=== PATIENT | male | born 2000 | race American Indian/Alaskan Native ===

== ENCOUNTER 2020-09-20 19:24 | Emergency (ER) | payer SELFPAY ==
[2020-09-20 19:40] VITALS: BP 128/65
[2020-09-20] MEDS ORDERED: IPRATROPIUM 0.02% NEBU 2.5 ML IH ONE ×3 (19:53→22:15)
[2020-09-20] MEDS ORDERED: ALBUTEROL 2.5 MG/3 ML NEBU IH ONE ×3 (19:53→22:15)
--- NOTE | 2020-09-20 19:57 | Emergency Department Report ---
ED General Adult HPI - General Chief complaint: Dyspnea/Respdistress Stated complaint: ASTHMA Time Seen by Provider: 09/20/20 19:47 Source: patient Mode of arrival: Ambulatory Limitations: No Limitations - History of Present Illness Initial comments: 19-year-old male patient with history of asthma and tobacco use presents to emergency department with complaints of cough, wheezing, and shortness of breath for 2 weeks. Patient used an albuterol inhaler at home with limited relief. Patient states symptoms began after playing basketball at the gym. He has never required hospitalization for his asthma. He did not receive his COVID-19 vaccination series. Denies fever, chills, chest pain, hemoptysis, vomiting, syncope. Denies all other complaints at this time. - Related Data Previous Rx's Medication Instructions Recorded Last Taken Type Albuterol Sulfate [Proair 90 mcg IH Q4H PRN #1 aer.pw.bas 09/20/20 Unknown Rx Digihaler] predniSONE [Deltasone] 20 mg PO QDAY #5 tab 09/20/20 Unknown Rx Allergies Allergy/AdvReac Type Severity Reaction Status Date / Time No Known Allergies Allergy Verified 09/20/20 22:11 ED Review of Systems ROS: Stated complaint: ASTHMA Other details as noted in HPI Other: GENERAL: Negative for fever, chills, weight change, anorexia, fatigue. ENT: Negative for ear pain, difficulty hearing, sore throat, nasal congestion, epistaxis. CARDIOVASCULAR: Negative for chest pain, palpitations, lower extremity swelling. PULMONARY: Positive for cough, wheezing, shortness of breath. GASTROINTESTINAL: Negative for abdominal pain, nausea, vomiting, diarrhea, constipation. MUSCULOSKELETAL: Negative for joint pain, joint swelling, myalgias, back pain, neck pain. NEUROLOGICAL: Negative for headache, seizure, syncope, paresthesias, weakness. INTEGUMENTARY: Negative for erythema, rash, diaphoresis, laceration, ecchymosis. HEMATOLOGICAL: Negative for hemoptysis, hematemesis, hematochezia, hematuria. PSYCHIATRIC: Negative for hallucinations, suicidal ideation, homicidal ideation, anxiety, depression. ED Past Medical Hx - Past Medical History Previous Medical History?: Yes Hx Asthma: Yes Additional medical history: eczema - Surgical History Past Surgical History?: No - Medications Home Medications: Home Medications Medication Instructions Recorded Confirmed Last Taken Type Albuterol Sulfate [Proair 90 mcg IH Q4H PRN #1 aer.pw.bas 09/20/20 Unknown Rx Digihaler] predniSONE [Deltasone] 20 mg PO QDAY #5 tab 09/20/20 Unknown Rx ED Physical Exam - General Limitations: No Limitations - Other Other exam information: General: Awake and alert. Actively coughing throughout history and examination. Head: Atraumatic, normocephalic. Eyes: EOMI. Pupils are equal and round. Normal sclera and conjunctiva. ENT: Oral mucosa is moist. Normal pharyngeal exam. Neck: Supple. No lymphadenopathy. Pulmonary: No respiratory distress. Scattered expiratory wheezing bilaterally. Diminished air movement. Cardiac: Regular rate and rhythm. Pulses are palpable and equal bilaterally. No lower extremity cyanosis or edema. Skin: Warm and dry. No rashes. Abdomen: Soft, non-tender, non-protuberant. No guarding, rigidity, or rebound. Bowel sounds are normal. No organomegaly or masses noted. Back: Normal alignment. No CVA tenderness. Extremities: Symmetrical. Full range of motion intact. Neurological: Alert and oriented, appropriately interactive, no focal deficits. Psych: Cooperative. Appropriate mood and affect. Speech is evenly metered. Thoughts are logically construed. ED Course Vital Signs 09/20/20 09/20/20 19:39 22:24 Temperature 99.2 F Pulse Rate 98 H Pulse Rate [ 72 Bilateral] Respiratory 18 Rate Respiratory 20 Rate [Bilateral ] Blood Pressure 128/65 [Right] O2 Sat by Pulse 95 Oximetry ED Medical Decision Making - Medical Decision Making Differential diagnosis including but not limited to: asthma exacerbation, pneumonia, pleural effusion, viral upper respiratory infection, influenza 19:53: Continuous pulse oximetry and cardiac monitoring ordered immediately following assessment. Respiratory therapy aware of order for breathing treatment. Chest x-ray ordered due to productive cough in the setting of asthma/tobacco use/unvaccinated COVID-19 status. 21:29: Chest x-ray without acute process. Patient still awaiting breathing treatment. 23:59: On reevaluation, patient is stable and symptoms have improved significantly. Repeat cardiopulmonary exam demonstrates clear lungs and good air movement. Patient states he feels ready to go home and is asking how much longer until he can leave. He is ambulatory without assistance, no hypoxia, no respiratory distress. No clinical indication for further diagnostic work-up on an emergent basis at this time. Patient will be discharged home with beta agonist inhaler and short course of oral steroids. Referred to primary care provider for close outpatient follow-up. Emphasized the importance of avoiding environmental triggers which may worsen his symptoms. Smoking cessation discussed. Strict return precautions provided. Repeat exam is unremarkable and benign. History, exam, diagnostic testing, and current condition do not suggest worrisome pathology to warrant further testing, continued ED treatment, admission, or surgical evaluation at this point. Given the low probability of a significant medical illness, it would be more likely to result in harm than benefit to perform further testing at this stage. Discussed findings, presumptive diagnosis, need for follow-up and specific signs/symptoms that should prompt immediate return to the emergency department. Instructions were explained in detail to the patient in addition to giving written discharge information. Patient expressed understanding and was given the opportunity to ask questions, all of which were satisfactorily answered prior to discharge home. Critical care attestation.: If time is entered above; I have spent that time in minutes in the direct care of this critically ill patient, excluding procedure time. ED Disposition Clinical Impression: Asthma exacerbation Qualifiers: Asthma severity: unspecified severity Asthma persistence: unspecified Qualified Code(s): J45.901 - Unspecified asthma with (acute) exacerbation Disposition: 01 HOME / SELF CARE / HOMELESS Is pt being admited?: No Does the pt Need Aspirin: No Condition: Stable Instructions: Asthma Attack Additional Instructions: Use Albuterol inhaler as directed. Take Prednisone with food as directed. Avoid environmental triggers which may worsen your symptoms. Please discontinue tobacco use. Follow-up with primary care provider this week. Call tomorrow to schedule an appointment. Return to the emergency department immediately for new or worsening symptoms. Prescriptions: predniSONE [Deltasone] 20 mg PO QDAY #5 tab Albuterol Sulfate [Proair Digihaler] 90 mcg IH Q4H PRN #1 aer.pw.bas PRN Reason: Shortness Of Breath Referrals: JACOB MENDEZ MD [Staff Physician] - 3-5 Days [facility] [Provider Group] - 3-5 Days Time of Disposition: 23:58
--- NOTE | 2020-09-20 21:01 | XRay Report ---
CHEST 1 VIEW 09/20/2020 7:51 PM INDICATION / CLINICAL INFORMATION: asthma, productive cough, no covid vaccine. Fever. COMPARISON: None available. FINDINGS: SUPPORT DEVICES: None. HEART / MEDIASTINUM: No significant abnormality. LUNGS / PLEURA: No significant pulmonary or pleural abnormality. No pneumothorax. ADDITIONAL FINDINGS: No significant additional findings. IMPRESSION: 1. No acute findings. Signer Name: Ana Cristina Koehler MD Signed: 09/20/2020 8:56 PM Workstation Name: [id number]
== END 2020-09-20 23:59 | disposition home or self-care (01) ==
LOC: ED 19:24
DX: J45.901 Unspecified asthma with (acute) exacerbation (principal); Z79.899 Other long term (current) drug therapy
CPT/HCPCS: 71045; 94640; 94644